=== PATIENT | female | born 1950 | race Caucasian/White ===

== ENCOUNTER 2019-06-20 12:29 | Inpatient (IN) ==
[2019-06-20] MEDS ORDERED: Dicyclomine 20 MG/2 ML AMPUL IM ONE (13:26)
[2019-06-20] MEDS ORDERED: Pantoprazole 40 MG VIAL IVP ONE (13:27)
[2019-06-20 13:40] LABS: Basophils % 0.4 %; Eosinophils # 0.1 K/mcL (0.0-0.6); Eosinophils % 0.6 %; Hematocrit 35.4 % (35.3-44.9); Hemoglobin 12.4 g/dL (11.5-15.4); Immature Granulocytes % 0.5 % (0-4); Lymphocytes # 1.8 K/mcL (0.6-4.6); Mean Corpuscular Hemoglobin 27.8 pg (28.0-33.3); Mean Corpuscular Volume 79.4 fL (83.0-100.0); Mean Platelet Volume 9.7 fL (9.4-12.4); Monocytes # 1.1 K/mcL (0.0-1.3); Monocytes % 11.5 %; Neutrophils # 6.7 K/mcL (1.6-8.9); Platelet Count 292 K/mcL (140-400); Red Blood Count 4.46 M/mcL (3.82-4.97); Red Cell Distribution Width 13.4 % (11.5-14.5); White Blood Count 9.7 K/mcL (4.3-11.1)
[2019-06-20] MEDS: Ketorolac 30 MG/ML VIAL IVP ONE ×2 (13:40→13:50)
[2019-06-20] MEDS ORDERED: Ketorolac 30 MG/ML VIAL IVP ONE (14:00)
[2019-06-20 14:02] LABS: Alanine Aminotransferase 23 Units/L (7-52); Albumin 4.3 g/dL (3.5-5.7); Albumin/Globulin Ratio 1.4 (1.1-2.2); Alkaline Phosphatase 72 Units/L (34-104); Aspartate Amino Transferase 34 Units/L (13-39); BUN/Creatinine Ratio 24 (6-26); Bilirubin,Total 0.6 mg/dL (0.3-1.0); Blood Urea Nitrogen 19 mg/dL (8-23); Carbon Dioxide 18 mEq/L (23-29); Chloride 91 mEq/L (98-107); Globulin 3.1 g/dL (2.4-3.5); Glucose 98 mg/dL (70-105); Lipase 145 Units/L (11-82); Osmolality,Calculated 252 (280-300); Potassium 3.3 mEq/L (3.5-5.1); Sodium 120 mEq/L (136-145); Total Protein 7.4 g/dL (6.4-8.9); eGFR For African Americans > 60 (> 60); eGFR For Non-African Americans > 60 (> 60)
[2019-06-20] MEDS ORDERED: Isovue-370 500 ML BOTTLE IVP ONE (14:06)
[2019-06-20] MEDS ORDERED: 0.9 % Sodium Chloride 1,000 ML IVC SCH (14:15)
[2019-06-20] MEDS ORDERED: Ondansetron 4 MG/2 ML VIAL IVP ONE (16:00)
[2019-06-20 16:24] LABS: Bilirubin,Urine Negative (Negative); Blood,Urine Negative (Negative); Clarity,Urine Clear (Clear); Color,Urine Yellow (Yellow); Glucose,Urine (UA) Normal (Normal); Ketones,Urine Negative (Negative); Leukocyte Esterase,Urine Negative (Negative); Nitrite,Urine Negative (Negative); Protein,Urine Negative (Neg-Trace); Specific Gravity,Urine 1.015 (1.010-1.025); Urobilinogen,Urine Normal (Normal)
[2019-06-20] MEDS ORDERED: Ondansetron 4 MG/2 ML VIAL IVP PRN (16:49)
[2019-06-20] MEDS ORDERED: Naloxone 0.4 MG/ML INJ IVP PRN ×2 (16:49→17:15)
[2019-06-20] MEDS ORDERED: *HR* Dextrose 50 % in Water (Vial) 50 ML VIAL IVP PRN (17:15)
[2019-06-20] MEDS ORDERED: D5% in Water 1,000 ML IVC PRN (17:15)
[2019-06-20] MEDS ORDERED: Dextrose Gel 15 GM/37.5 ML TUBE PO PRN ×2 (17:15)
[2019-06-20] MEDS: 0.9 % Sodium Chloride 1,000 ML IVC SCH ×2 (18:25→23:29)
[2019-06-20] MEDS: Pregabalin 75 MG CAPSULE PO SCH (20:45)
[2019-06-20] MEDS: Insulin DETEMIR 100 UNIT/ML X5UNITS SQ SCH (20:46)
[2019-06-20] MEDS: Metoprolol XL (24 HR) Succ 50 MG TAB.ER.24H PO SCH (20:46)
[2019-06-20] MEDS: Insulin LISPRO 300 UNITS/3 ML VIAL SQ SCH (20:46)
[2019-06-20] MEDS: OMEGA PO SCH (20:47)
[2019-06-20] MEDS: FATTY ACIDS PO SCH (20:47)
[2019-06-20] MEDS: tiZANidine 4 MG TABLET PO PRN (20:54)
[2019-06-20] MEDS ORDERED: INSULIN ASPART 30 UNIT SQ SCH (21:00)
[2019-06-20] MEDS ORDERED: Benzonatate 100 MG CAPSULE PO PRN (21:00)
[2019-06-21] MEDS: *HR* HYDROmorphone 2 MG TABLET PO PRN (03:44)
[2019-06-21] MEDS: Ondansetron 4 MG/2 ML VIAL IVP PRN (06:01)
[2019-06-21 07:00] LABS: Basophils % 0.4 %; Eosinophils # 0.1 K/mcL (0.0-0.6); Eosinophils % 1.4 %; Hematocrit 33.3 % (35.3-44.9); Hemoglobin 11.2 g/dL (11.5-15.4); Immature Granulocytes % 0.4 % (0-4); Lymphocytes # 2.3 K/mcL (0.6-4.6); Lymphocytes % 30.9 %; Mean Corpuscular HGB Conc 33.6 g/dL (31.6-35.5); Mean Corpuscular Hemoglobin 27.3 pg (28.0-33.3); Mean Platelet Volume 9.7 fL (9.4-12.4); Monocytes # 0.9 K/mcL (0.0-1.3); Monocytes % 11.7 %; Neutrophils # 4.1 K/mcL (1.6-8.9); Platelet Count 293 K/mcL (140-400); Red Blood Count 4.11 M/mcL (3.82-4.97); Red Cell Distribution Width 13.5 % (11.5-14.5); Segmented Neutrophils % 55.2 %; White Blood Count 7.4 K/mcL (4.3-11.1)
[2019-06-21 07:18] LABS: BUN/Creatinine Ratio 25 (6-26); Blood Urea Nitrogen 18 mg/dL (8-23); Calcium 8.7 mg/dL (8.6-10.3); Carbon Dioxide 18 mEq/L (23-29); Chloride 101 mEq/L (98-107); Glucose 98 mg/dL (70-105); Lipase 127 Units/L (11-82); Osmolality,Calculated 268 (280-300); Potassium 3.7 mEq/L (3.5-5.1); Sodium 128 mEq/L (136-145); eGFR For African Americans > 60 (> 60); eGFR For Non-African Americans > 60 (> 60)
[2019-06-21] MEDS: Insulin LISPRO 300 UNITS/3 ML VIAL SQ SCH ×4 (07:39→20:30)
[2019-06-21] MEDS: OMEGA PO SCH ×2 (07:57→20:31)
[2019-06-21] MEDS: FATTY ACIDS PO SCH ×2 (07:57→20:31)
[2019-06-21] MEDS: 0.9 % Sodium Chloride 1,000 ML IVC SCH ×2 (08:03→18:21)
[2019-06-21] MEDS: Fluticasone Propionate Nasal 50 MCG/SPRAY BOTTLE NS SCH (08:04)
[2019-06-21] MEDS: Vitamin E 200 UNIT (90MG) CAPSULE PO SCH (08:04)
[2019-06-21] MEDS: Valsartan 160 MG TABLET PO SCH (08:04)
[2019-06-21] MEDS: Cholecalciferol (D-3) 1,000 UNIT (25MCG) TABLET PO SCH (08:05)
[2019-06-21] MEDS: Aspirin Enteric Coated 81 MG Tablet PO SCH (08:05)
[2019-06-21] MEDS ORDERED: Pregabalin 75 MG CAPSULE PO SCH (09:00)
[2019-06-21 09:19] LABS: Ferritin 63 ng/mL (10-120)
[2019-06-21] MEDS: Pregabalin 75 MG CAPSULE PO SCH (20:28)
[2019-06-21] MEDS: Metoprolol XL (24 HR) Succ 50 MG TAB.ER.24H PO SCH (20:30)
[2019-06-21] MEDS: Insulin DETEMIR 100 UNIT/ML X5UNITS SQ SCH (20:31)
[2019-06-21] MEDS: Sennosides 8.6 MG TABLET PO SCH (20:33)
[2019-06-21] MEDS: tiZANidine 4 MG TABLET PO PRN (20:40)
[2019-06-22] MEDS: 0.9 % Sodium Chloride 1,000 ML IVC SCH ×3 (04:47→16:03)
[2019-06-22] MEDS ORDERED: 0.9 % Sodium Chloride 1,000 ML IVC SCH (05:15)
[2019-06-22] MEDS: Ondansetron 4 MG/2 ML VIAL IVP PRN (05:34)
[2019-06-22] MEDS: *HR* HYDROmorphone 2 MG TABLET PO PRN (05:34)
[2019-06-22 06:18] LABS: Basophils % 0.7 %; Eosinophils # 0.1 K/mcL (0.0-0.6); Hematocrit 32.1 % (35.3-44.9); Hemoglobin 10.7 g/dL (11.5-15.4); Immature Granulocytes % 0.2 % (0-4); Lymphocytes # 2.1 K/mcL (0.6-4.6); Lymphocytes % 36.5 %; Mean Corpuscular HGB Conc 33.3 g/dL (31.6-35.5); Mean Corpuscular Hemoglobin 27.4 pg (28.0-33.3); Mean Corpuscular Volume 82.1 fL (83.0-100.0); Mean Platelet Volume 9.7 fL (9.4-12.4); Monocytes # 0.8 K/mcL (0.0-1.3); Monocytes % 13.3 %; Neutrophils # 2.8 K/mcL (1.6-8.9); Platelet Count 313 K/mcL (140-400); Red Blood Count 3.91 M/mcL (3.82-4.97); Red Cell Distribution Width 14.1 % (11.5-14.5); Segmented Neutrophils % 48.3 %; White Blood Count 5.7 K/mcL (4.3-11.1)
[2019-06-22 06:34] LABS: BUN/Creatinine Ratio 23 (6-26); Blood Urea Nitrogen 15 mg/dL (8-23); Calcium 8.5 mg/dL (8.6-10.3); Carbon Dioxide 17 mEq/L (23-29); Chloride 108 mEq/L (98-107); Glucose 79 mg/dL (70-105); Osmolality,Calculated 280 (280-300); Potassium 3.8 mEq/L (3.5-5.1); Sodium 135 mEq/L (136-145); eGFR For African Americans > 60 (> 60); eGFR For Non-African Americans > 60 (> 60)
[2019-06-22] MEDS: Insulin LISPRO 300 UNITS/3 ML VIAL SQ SCH ×4 (08:28→20:30)
[2019-06-22] MEDS: Sennosides 8.6 MG TABLET PO SCH ×2 (08:38→16:09)
[2019-06-22] MEDS: Cholecalciferol (D-3) 1,000 UNIT (25MCG) TABLET PO SCH (08:38)
[2019-06-22] MEDS: Aspirin Enteric Coated 81 MG Tablet PO SCH (08:38)
[2019-06-22] MEDS: Vitamin E 200 UNIT (90MG) CAPSULE PO SCH (08:38)
[2019-06-22] MEDS: Valsartan 160 MG TABLET PO SCH (08:38)
[2019-06-22] MEDS: OMEGA PO SCH ×2 (08:39→20:30)
[2019-06-22] MEDS: FATTY ACIDS PO SCH ×2 (08:39→20:30)
[2019-06-22] MEDS: Fluticasone Propionate Nasal 50 MCG/SPRAY BOTTLE NS SCH (08:41)
[2019-06-22] MEDS: *HR* Metformin 500 MG TABLET PO SCH (17:52)
[2019-06-22] MEDS: Metoprolol XL (24 HR) Succ 50 MG TAB.ER.24H PO SCH (20:28)
[2019-06-22] MEDS: Pregabalin 75 MG CAPSULE PO SCH (20:28)
[2019-06-22] MEDS: Insulin DETEMIR 100 UNIT/ML X5UNITS SQ SCH (20:29)
[2019-06-23 06:43] LABS: Hematocrit 33.5 % (35.3-44.9); Hemoglobin 11.1 g/dL (11.5-15.4); Mean Corpuscular HGB Conc 33.1 g/dL (31.6-35.5); Mean Corpuscular Hemoglobin 27.2 pg (28.0-33.3); Mean Corpuscular Volume 82.1 fL (83.0-100.0); Platelet Count 345 K/mcL (140-400); Red Blood Count 4.08 M/mcL (3.82-4.97); Red Cell Distribution Width 14.3 % (11.5-14.5); White Blood Count 7.1 K/mcL (4.3-11.1)
[2019-06-23 07:02] VITALS: BP 145/97
[2019-06-23 07:04] LABS: BUN/Creatinine Ratio 16 (6-26); Blood Urea Nitrogen 11 mg/dL (8-23); Calcium 9.1 mg/dL (8.6-10.3); Carbon Dioxide 19 mEq/L (23-29); Chloride 107 mEq/L (98-107); Glucose 74 mg/dL (70-105); Lipase 73 Units/L (11-82); Magnesium 2.1 mg/dL (1.6-2.6); Osmolality,Calculated 280 (280-300); Potassium 3.5 mEq/L (3.5-5.1); Sodium 136 mEq/L (136-145); eGFR For African Americans > 60 (> 60); eGFR For Non-African Americans > 60 (> 60)
[2019-06-23] MEDS: Insulin LISPRO 300 UNITS/3 ML VIAL SQ SCH ×2 (07:45→11:14)
[2019-06-23] MEDS: Aspirin Enteric Coated 81 MG Tablet PO SCH (08:15)
[2019-06-23] MEDS: Cholecalciferol (D-3) 1,000 UNIT (25MCG) TABLET PO SCH (08:15)
[2019-06-23] MEDS: Vitamin E 200 UNIT (90MG) CAPSULE PO SCH (08:15)
[2019-06-23] MEDS: FATTY ACIDS PO SCH (08:16)
[2019-06-23] MEDS: Sennosides 8.6 MG TABLET PO SCH (08:16)
[2019-06-23] MEDS: *HR* Metformin 500 MG TABLET PO SCH (08:16)
[2019-06-23] MEDS: OMEGA PO SCH (08:16)
[2019-06-23] MEDS: Valsartan 160 MG TABLET PO SCH (08:21)
[2019-06-23] MEDS: Fluticasone Propionate Nasal 50 MCG/SPRAY BOTTLE NS SCH (08:21)
== END 2019-06-23 12:27 | disposition home or self-care (01) | DRG 439 ==
LOC: EMEROOPIK 12:29 → INPPIK 17:24
PROVIDERS: ADMIT Family Medicine; ATTEND Family Medicine